=== PATIENT | female | born 1985 | race Two or more races ===

== ENCOUNTER 2021-11-11 23:37 | Emergency (ER) | payer SELFPAY ==
[~2021-11-11] VITALS: Ht 172.7 cm; Wt 113.4 kg
[2021-11-11 23:47] VITALS: BP 103/61
[2021-11-12] MEDS ORDERED: IBU600T PO (00:44)
== END 2021-11-12 05:03 | disposition left against medical advice (07) ==
LOC: ER 23:37 → EDBD 23:37 → ER 11-12 05:03
DX: R51.9 Headache, unspecified (principal); E11.9 Type 2 diabetes mellitus without complications; Z53.29 Procedure and treatment not carried out because of patient's decision for other reasons
CPT/HCPCS: 70450